=== PATIENT | male | born 1980 | race Caucasian/White ===

== ENCOUNTER 2022-06-04 09:06 | Observation (INO) | payer SELFPAY ==
[~2022-06-04 09:06] MED LIST: Iopamidol 370 76% 100 ML VIAL ONE
[2022-06-04] MEDS ORDERED: Acetaminophen 500 MG TAB ONE (10:00)
[2022-06-04] MEDS ORDERED: Ibuprofen 200 MG TAB ONE (10:00)
[2022-06-04] MEDS ORDERED: Aspirin Chewable 81 MG TAB ONE (10:03)
[2022-06-04 10:22] LABS: #Eosinphils 0.2 thou/uL (0.0-0.7); #Lymphocytes 1.5 thou/uL (1.20-3.40); #Monocytes 0.4 thou/uL (0.11-0.59); #Neutrophils 3.6 thou/uL (1.40-6.50); %Basophils 0.2 % (0.0-1.0); %Eosinophils 2.9 % (0.0-10.0); %Lymphocytes 26.1 % (21.0-51.0); %Monocytes 7.6 % (0.0-10.0); %Neutrophils 63.2 % (42.0-75.0); Hemoglobin 13.2 g/dL (14.0-18.0); Mean Corpuscular HGB CONC 34.7 g/dL (32.0-36.0); Mean Corpuscular Hemoglobin 31.4 pg (27.0-31.0); Mean Corpuscular Volume 90.4 fL (78.0-98.0); Mean Platelet Volume 8.3 fL (7.4-10.4); Platelet Count 187 thou/uL (130-400); RBC Distribution Width 12.4 % (11.5-14.5); Red Blood Cell (RBC) Count 4.21 mill/uL (4.70-6.10); White Blood Cell (WBC) Count 5.7 thou/uL (4.8-10.8)
[2022-06-04 11:15] LABS: ALT (SGPT) 35 U/L (8-55); AST (SGOT) 21 U/L (5-34); Albumin 4.3 g/dL (3.5-5.0); Alkaline Phosphatase 140 U/L (40-110); Anion Gap 14 mmol/L (10-20); BUN (Urea Nitrogen) 10 mg/dL (8.9-20.6); Bilirubin, Total 0.4 mg/dL (0.2-1.2); Calc. Creatinine Clearance 0 mL/min (70-130); Calcium 9.3 mg/dL (7.8-10.44); Carbon Dioxide 24 mmol/L (22-29); Chloride 107 mmol/L (98-107); Estimated GFR 112; Globulin 2.9 g/dL (2.4-3.5); Glucose 97 mg/dL (70-105); Potassium 4.6 mmol/L (3.5-5.1); Protein, Total 7.2 g/dL (6.0-8.3); Sodium 140 mmol/L (136-145)
[2022-06-04 11:50] LABS: SARS-CoV-2 NAA Rapid Test Not Detected (NotDetected)
[2022-06-04] MEDS ORDERED: Nitroglycerin 2% Ointment 1 INCH/1 GM Packet ONE (12:20)
[2022-06-04] MEDS ORDERED: Lidocaine 1% PF 5 ML VIAL ONE ×2 (13:19→13:20)
[2022-06-04] MEDS ORDERED: Acetaminophen 325 MG TAB PO PRN (13:26)
[2022-06-04] MEDS ORDERED: Ondansetron PF 4 MG/2 ML Vial IVP PRN (13:26)
[2022-06-04] MEDS ORDERED: HYDROcodone/Acetaminophen 5/325 mg Tablet PO PRN (13:26)
[2022-06-04] MEDS ORDERED: Fentanyl 100 MCG/2 ML VIAL ONE (14:06)
[2022-06-04] MEDS ORDERED: Midazolam HCl 2 mg/2 ml Vial ONE (14:06)
[2022-06-04 14:07] LABS: Troponin I Less than 0.010 ng/mL (< 0.028)
[2022-06-04] MEDS ORDERED: Sodium Chloride 0.9% 200 ML IV PRN (15:46)
[2022-06-04] MEDS ORDERED: Nitroglycerin 0.4 MG TAB (25 Tab Bottle) SL PRN (15:46)
[2022-06-04] MEDS ORDERED: Acetaminophen/Codeine 30-300mg Tablet PO PRN (15:46)
[2022-06-04] MEDS ORDERED: Acetaminophen 325 MG TAB ONE ×2 (17:23→17:24)
[2022-06-04 18:32] VITALS: BMI 34.7
[2022-06-04] MEDS: Carvedilol 3.125 MG TAB PO SCH (19:21)
[2022-06-04] MEDS ORDERED: Atorvastatin Calcium 40 MG TAB PO SCH (21:00)
[2022-06-05] MEDS: Acetaminophen/Codeine 30-300mg Tablet PO PRN ×2 (04:17→09:08)
[2022-06-05 04:36] LABS: Hemoglobin A1c 4.7 % (4.0-6.0)
[2022-06-05 04:52] LABS: Anion Gap 12 mmol/L (10-20); BUN (Urea Nitrogen) 8 mg/dL (8.9-20.6); Calc. Creatinine Clearance 202 mL/min (70-130); Calcium 8.7 mg/dL (7.8-10.44); Carbon Dioxide 23 mmol/L (22-29); Cardiac Risk 5.4 (Less than 4.5); Chloride 110 mmol/L (98-107); Cholesterol 168 mg/dl (< 200 Desired); Estimated GFR 115; Glucose 97 mg/dL (70-105); HDL Cholesterol 31 mg/dL (>60 Neg Risk); LDL Cholesterol, Calculated 111 mg/dL; Potassium 3.8 mmol/L (3.5-5.1); Sodium 141 mmol/L (136-145); Triglycerides 132 mg/dL (Less than 150)
[2022-06-05] MEDS ORDERED: Enoxaparin Sodium 40 MG/0.4 ML SYRINGE SC SCH (09:00)
[2022-06-05] MEDS ORDERED: Aspirin Chewable 81 MG TAB PO SCH (09:00)
[2022-06-05] MEDS ORDERED: levETIRAcetam 500 MG TAB PO SCH (09:00)
[2022-06-05] MEDS: Carvedilol 3.125 MG TAB PO SCH (09:03)
[2022-06-05 12:25] VITALS: BP 142/80; TEMP 97.8
[2022-06-05] MEDS ORDERED: Venlafaxine HCl XR 150 MG CAP PO SCH (21:00)
== END 2022-06-05 12:23 | disposition home or self-care (01) ==
LOC: ERS 09:06 → ERHOLD 12:48 → 2NO 17:44
PROVIDERS: ADMIT Internal Medicine; ATTEND Internal Medicine
PROC: 4A023N7 Measurement of Cardiac Sampling and Pressure, Left Heart, Percutaneous Approach (ICD-10-PCS; principal; 2022-06-04)
PROC: B2111ZZ Fluoroscopy of Multiple Coronary Arteries using Low Osmolar Contrast (ICD-10-PCS; 2022-06-04)
DX: R07.89 Other chest pain (principal); G40.909 Epilepsy, unspecified, not intractable, without status epilepticus; R94.31 Abnormal electrocardiogram [ECG] [EKG]; Z79.899 Other long term (current) drug therapy; Z20.822 Contact with and (suspected) exposure to COVID-19
CPT/HCPCS: 36415; 71045; 80048; 80053; 80061; 83036; 84484; 85025; 93005; 93458; 94760; C1769; G0378; J1650; J2250; J3010; Q9967; U0002

== ENCOUNTER 2022-07-08 16:26 | Emergency (ER) | payer OTHER, SELFPAY ==
[2022-07-08 16:59] LABS: #Eosinphils 0.2 thou/uL (0.0-0.7); #Lymphocytes 1.9 thou/uL (1.20-3.40); #Monocytes 0.4 thou/uL (0.11-0.59); #Neutrophils 4.9 thou/uL (1.40-6.50); %Basophils 0.5 % (0.0-1.0); %Lymphocytes 25.6 % (21.0-51.0); %Monocytes 5.6 % (0.0-10.0); %Neutrophils 65.3 % (42.0-75.0); Mean Corpuscular HGB CONC 35.6 g/dL (32.0-36.0); Mean Corpuscular Hemoglobin 31.8 pg (27.0-31.0); Mean Corpuscular Volume 89.3 fL (78.0-98.0); Mean Platelet Volume 8.2 fL (7.4-10.4); Platelet Count 204 thou/uL (130-400); RBC Distribution Width 12.7 % (11.5-14.5); Red Blood Cell (RBC) Count 4.09 mill/uL (4.70-6.10); White Blood Cell (WBC) Count 7.5 thou/uL (4.8-10.8)
[2022-07-08 17:15] LABS: ALT (SGPT) 31 U/L (8-55); AST (SGOT) 17 U/L (5-34); Albumin 4.3 g/dL (3.5-5.0); Alkaline Phosphatase 159 U/L (40-110); Anion Gap 13 mmol/L (10-20); BUN (Urea Nitrogen) 11 mg/dL (8.9-20.6); Bilirubin, Total 0.5 mg/dL (0.2-1.2); Calc. Creatinine Clearance 0 mL/min (70-130); Carbon Dioxide 24 mmol/L (22-29); Chloride 99 mmol/L (98-107); Estimated GFR 106; Globulin 2.8 g/dL (2.4-3.5); Glucose 102 mg/dL (70-105); Potassium 4.2 mmol/L (3.5-5.1); Protein, Total 7.1 g/dL (6.0-8.3); Sodium 132 mmol/L (136-145)
[2022-07-08] MEDS ORDERED: Acetaminophen 500 MG TAB ONE (17:23)
[2022-07-08] MEDS ORDERED: Aspirin Chewable 81 MG TAB ONE (17:23)
[2022-07-08] MEDS ORDERED: Mag-Al 1200 mg/1200 mg/30 ML UDCUP ONE (17:23)
[2022-07-08] MEDS ORDERED: Lidocaine Viscous Sol 2% 15 ml UD Cup ONE (17:23)
== END 2022-07-08 18:40 | disposition home or self-care (01) ==
LOC: ERS 16:26
DX: R07.9 Chest pain, unspecified (principal); R51.9 Headache, unspecified
CPT/HCPCS: 36415; 71045; 80053; 83690; 84484; 85025; 85379; 93005; 94760